=== PATIENT | female | born 1965 | race Caucasian/White ===

== ENCOUNTER 2020-03-04 10:07 | Inpatient (IN) ==
[2020-03-04 11:55] LABS: BASO# 0.02 X1000 (0.0-0.2); BASO% 0.2 % (0.0-0.8); EOS# 0.08 X1000 (0.0-0.7); EOS% 0.7 % (0.0-10.0); HEMOGLOBIN 14.8 g/dL (12.0-16.0); IMM GRAN# 0.04 X1000 (0.0-0.04); IMM GRAN% 0.4 % (0.0-0.5); LYMPH# 1.68 X1000 (1.2-3.4); LYMPH% 14.9 % (20.5-51.1); MCH 28.5 PG (27-31); MCHC 30.2 g/dL (33-37); MCV 94.2 FL (81-99); MONO# 0.75 X1000 (0.11-0.59); MONO% 6.6 % (1.7-9.3); MPV 9.1 FL (7.4-10.4); NEUT# 8.71 X1000 (1.4-6.5); NEUT% 77.2 % (42.2-75.2); PLT 321 X1000 (130-400); RDW 14.5 % (11.5-14.5); WBC 11.28 X1000 (4.8-10.8)
[2020-03-04] MEDS ORDERED: REGLAN IV ONE (11:55)
[2020-03-04] MEDS ORDERED: PEPCID IV ONE (11:55)
[2020-03-04] MEDS ORDERED: PROTONIX IV ONE (11:55)
[2020-03-04] MEDS ORDERED: G.I. COCKTAIL PO ONE (11:55)
[2020-03-04] MEDS ORDERED: SODIUM CHLORIDE 0.9% INJ ONE ×2 (11:55)
[2020-03-04 12:12] LABS: AGAP 9; ALBUMIN 4.2 g/dL (3.5-5.0); ALKALINE PHOSPHATASE 134 U/L (32-104); BUN 7 mg/dL (8-22); CHLORIDE 98 mmol/L (98-107); COSMO 277; CREATININE 0.5 mg/dL (0.5-0.9); ESTIMATED GFR > 60; GLUCOSE 96 mg/dL (70-104); GOT 14 U/L (10-30); GPT 14 U/L (10-36); SODIUM 140 mmol/L (136-145); TCO2 33 mmol/L (25-35); TOTAL PROTEIN 7.8 g/dL (6.3-8.3)
[2020-03-04 12:13] LABS: PHOSPHORUS 2.8 mg/dL (2.7-4.5)
[2020-03-04 12:29] LABS: FREE T4 1.15 ng/dL (0.93-1.70); TSH 0.45 uIUmL (0.27-4.20)
[2020-03-04 12:59] LABS: BLOOD TYPE ARTERIAL; SAMPLE BLOOD
[2020-03-04 13:00] LABS: BE 9.8 mmoll (-3.0-3.0); HCO3-(ACT) 32.3 mmoll (20.0-26.0); O2(CT) 18.6 mL/dL (15.0-23.0); PO2(98.6) 57 mmHg (60-100); SAO2 92.5 % (95.0-100.0); THB 14.9 g/dL (11.5-17.4); pH(98.6) 7.36 (7.35-7.45)
[2020-03-04 13:04] LABS: ALLEN TEST YES; MODALITY ROOM AIR; O2HB 89.1 % (95.0-99.0); PCO2(98.6) 68 mmHg (35-45)
--- NOTE | 2020-03-04 13:07 | Diag Imaging Result Doc PS360 ---
EXAM: CT ABD/PELVIS W/IV CONT ONLY INDICATION: abd pain TECHNIQUE: This exam was performed using automated exposure control, adjustment of mA or kV according to patient size, and/or use of iterative reconstruction technique. COMPARISON: None. FINDINGS: There is subsegmental atelectasis at the right lung base. The gallbladder, liver, spleen, pancreas, and adrenal glands are unremarkable. There are a few small renal cysts bilaterally. The kidneys are grossly unremarkable, otherwise. The urinary bladder appears normal. The reproductive tract is unremarkable as imaged. The appendix is normal. No colonic or small bowel wall thickening is appreciated. There is no evidence of bowel obstruction. There is a tiny hiatal hernia. The remainder of the GI tract is essentially unremarkable. There is a tiny umbilical hernia that contains only fat. No focal inflammatory changes, free abdominal gas, or free fluid is appreciated. There is no evidence of acute osseous abnormality. IMPRESSION: Incidental/nonacute findings detailed above. No definite acute pathology by CT. Electronically signed by Steve Vu 03/04/2020 1:04 PM
--- NOTE | 2020-03-04 13:09 | Diag Imaging Result Doc PS360 ---
EXAM: CHEST-2 VIEWS INDICATION: cp TECHNIQUE: 2 views COMPARISON: 03/16/2018 FINDINGS: There is mild subsegmental atelectasis at the posterior right lung base. There is stable mild linear scarring versus chronic atelectasis in the left midlung zone. There is no discrete pleural fluid collection or pneumothorax. The cardiomediastinal silhouette and central vasculature are grossly unremarkable. IMPRESSION: Mild subsegmental atelectasis. No definite acute chest pathology by plain radiograph, otherwise. Electronically signed by Steve Vu 03/04/2020 1:07 PM
--- NOTE | 2020-03-04 13:19 | EKG Report ---
Test Performed on : 03/04/2020 11:43:26 AM Test Reason : cp Blood Pressure : / mmHG Vent. Rate : 098 BPM Atrial Rate : 098 BPM P-R Int : 152 ms QRS Dur : 080 ms QT Int : 344 ms P-R-T Axes : 067 026 053 degrees QTc Int : 439 ms Normal sinus rhythm. Anterior infarct , age undetermined Abnormal ECG When compared with ECG of 08-JAN-2018 15:00, No significant change was found Unconfirmed Result
[2020-03-04 13:25] LABS: URINE SOURCE CLEAN CATCH
[2020-03-04 13:27] LABS: BILIRUBIN URINE NEGATIVE (NEGATIVE); BLOOD URINE NEGATIVE (NEGATIVE); COLOR YELLOW; GLUCOSE URINE NEGATIVE (NEGATIVE); KETONE URINE NEGATIVE (NEGATIVE); LEUKOCYTES URINE NEGATIVE (NEGATIVE); NITRITE URINE NEGATIVE (NEGATIVE); PH URINE 8.5; PROTEIN URINE TRACE mg/dL (NEGATIVE); SP GRAVITY URINE 1.046; TURBIDITY URINE CLEAR (CLEAR); UROBILINOGEN URINE NORMAL (NORMAL)
[2020-03-04 13:28] LABS: UR EPITHELIAL CELLS <10 /HPF (<10); URINE BACTERIA NEGATIVE /HPF; URINE RBC <10 /HPF (<10); URINE WBC <10 /HPF (<10)
[2020-03-04] MEDS ORDERED: NS 1,000 ML IV ONE (13:37)
[2020-03-04 13:45] LABS: UR AMPHETAMINES QUAL NONE DETECTED (NONE DETECT); UR BARBITUATES QUAL NONE DETECTED (NONE DETECT); UR BENZODIAZEPIN QUAL NONE DETECTED (NONE DETECT); UR CANNABINOIDS QUAL NONE DETECTED (NONE DETECT); UR COCAINE QUAL NONE DETECTED (NONE DETECT); UR METHADONE QUAL NONE DETECTED (NONE DETECT); UR METHAMPHETAMINE QUAL NONE DETECTED (NONE DETECT); UR OPIATES QUAL NONE DETECTED (NONE DETECT); UR OXYCODONE QUAL NONE DETECTED (NONE DETECT); UR PCP QUAL NONE DETECTED (NONE DETECT); UR PROPOXYPHENE QUAL NONE DETECTED (NONE DETECT); UR TCA QUAL NONE DETECTED (NONE DETECT)
--- NOTE | 2020-03-04 13:49 | PROVIDER DOCUMENTATION ---
This chart was entered by Mariela Joiner Scribe, acting as scribe for Zack Basilio CRNP. HPI-General Adult - General Source: patient - History of Present Illness -Gen Adult Nature of Presenting Problems: pt is a 54 yr old female presenting with multiple complaints. pt reports (02/29/20) was sent home from work due to cough, low oxygen sats and abdominal pain. pt reports she has had low oxygen for "awhile" and told it was "normal" for her, pt reports significant swelling of BLE x 6months and has to sleep upright. pt admits epigastric pain, reports when she swallows it feels like something is stuck and that she has a knot in her chest. pt admits shor tness of breath when lying down or with exertion. pt reports since she has been off work the edema to legs has improved but all other symptoms remain Location of Pain/Injury: reports: chest, abdomen Pain Radiation: reports: no radiation Quality of Pain: reports: pressure Severity: reports: moderate Onset/Duration: reports: gradual Timing: reports: getting worse Context/Activities at Onset: reports: light activity Modifying Factors: improves with: breathing (induces pain), eating (induces pain), lying down (worsens shortness of breath) Associated Symptoms: reports: chest pain, cough, headaches, nausea, shortness of breath, pain with inspiration. denies: dizziness, EENT symptoms, fever/chills, loss of appetite, sinus congestion/drainage Similar Symptoms Previously?: No Recently seen or treated by another doctor?: No <Zack Basilio - Last Filed: 03/04/20 13:54> <Jeff Gandhi - Last Filed: 03/04/20 14:53> - General Chief Complaint: Abdominal Pain Stated Complaint: GI PAIN Time Seen by Provider: 03/04/20 10:09 Allergies/Adverse Reactions: Patient Allergies Allergy/AdvReac Type Severity Reaction Status Date / Time No Known Allergies Allergy Verified 01/06/18 10:05 Home Medications: Home Medication List Medication Instructions Recorded Confirmed Last Taken Type Albuterol [Albuterol Neb] 2.5 mg INH RTQ6H #120 neb 01/08/18 Unknown Rx Ipratropium H[place]orne Neb [Atrovent 0.5 mg INH RTQ6H #120 neb 01/08/18 Unknown Rx Neb] Modafinil [Provigil] 200 mg PO QAM #30 tablet 01/08/18 Unknown Rx Nebulizer Accessories [Nebulizer] 1 each DIRECTED #1 kit 01/08/18 Unknown Rx Review of Systems - Adult - REVIEW OF SYSTEMS - ADULT Constitutional: denies: chills, fever Eyes: denies: blurred vision, double vision Ears, Nose, Mouth & Throat: denies: ear pain, sinus problem, throat pain Cardiovascular: reports: chest pain, edema, orthopnea. denies: palpitations, syncope Respiratory: reports: cough, dyspnea on exertion, pleurisy, shortness of breath Gastrointestinal: reports: abdominal pain, nausea. denies: diarrhea, vomiting Genitourinary: denies: dysuria, frequency, flank pain Musculoskeletal: denies: back pain, joint pain, neck pain Integumentary: reports: no symptoms reported Neurological: reports: headache/migraines. denies: dizziness/vertigo, numbness, syncope Psychiatric: reports: no symptoms reported Endocrine: reports: no symptoms reported Hematologic/Lymphatic: reports: no symptoms reported Allergic/Immunologic: reports: no symptoms reported All Other Systems: Reviewed and Negative <Zack Basilio - Last Filed: 03/04/20 13:54> Past History - Adult - PAST MEDICAL HISTORY-ADULT Review of Records: reports: Old Records Reviewed, Nursing Assessment Review, Medications Reviewed, Social history reviewed & non-contributory. Major Childhood Illnesses: reports: denies history Cardiovascular: reports: denies history Respiratory: reports: denies history Gastrointestinal: reports: denies history Obstetrical/Gynecological: reports: denies history Genitourinary: reports: denies history Musculoskeletal: reports: denies history Neurological: reports: denies history Psychiatric: reports: anxiety Endocrine/Immune: reports: denies history Other Conditions: reports: denies history - PRIOR SURGERIES/PROCEDURES Surgical/Procedure History: reports: orthopedic (extremity) - IMMUNIZATION STATUS Childhood Immunizations: See Nurse Assessment Flu Vaccine: See Nurse Assessment - FAMILY HISTORY Family History: reviewed, not pertinent - SOCIAL HISTORY Smoking: quit greater than 1 year (7yrs) Living Situation: family <Zack Basilio - Last Filed: 03/04/20 13:54> Physical Exam-General - PHYSICAL EXAM-ADULT Initial Vital Signs Reviewed: Yes - CONSTITUTIONAL General Appearance: alert, no apparent distress, obese - EYES Eyes: PERRL/EOMI - HEAD, EARS, NOSE, MOUTH & THROAT HENMT: normocephalic/atraumatic, moist mucous membranes, normal ENT inspection - NECK Neck: non-tender, full range of motion, supple, normal inspection - RESPIRATORY Respiratory: lungs clear, normal breath sounds, other (spo2 82% on room air, 94% on 4l) - CARDIOVASCULAR Cardiovascular: normal peripheral pulses, regular rate, rhythm, tachycardia - GASTROINTESTINAL (ABDOMEN) Abdominal Exam: normal bowel sounds, non tender, soft - LYMPHATIC Lymphatic: no adenopathy - MUSCULOSKELETAL Back Exam: normal inspection, no CVA tenderness, no vertebral tenderness Extremity: normal range of motion, non-tender, normal gait, pedal edema (BLE edema) - SKIN Integumentary: normal turgor, warm/dry, cyanosis (to fingers-resolved when oxygen applied) - NEUROLOGIC Neurologic: grossly normal, no motor/sensory deficits - PSYCHIATRIC Psych/Mental Status: normal mood/affect, normal thought content, normal thought process, oriented x 3 <Zack Basilio - Last Filed: 03/04/20 13:54> Progress - PLAN OF CARE/RESULTS Progress/Plan/Lab Results: Vital Signs - 8 hr 03/04/20 10:12 Temperature 98.1 F Pulse Rate 96 H Respiratory Rate 16 Blood Pressure 152/117 O2 Sat by Pulse Oximetry 86 L Orders Category Date Time Status NEWS Score 2-4:Order NEWS Lactate Series NOW Care 03/04/20 10:15 Active Nursing- Obtain EKG ONCE Care 03/04/20 11:25 Active CHEST-2 VIEWS [RAD] Stat Exams 03/04/20 11:[address] ABD/PELVIS W/IV CONT ONLY [CT] Stat Exams 03/04/20 11:25 Ordered CBC WITH ELECTRONIC DIFF [HEME] Stat Lab 03/04/20 11:25 Uncollected CK PROFILE [SP CHEM] Stat Lab 03/04/20 11:25 Ordered CK TOTAL [CHEM] Stat Lab 03/04/20 11:25 Ordered COMPREHENSIVE METABOLIC PANEL [CHEM] Stat Lab 03/04/20 11:25 Uncollected FREE T4 Stat Lab 03/04/20 11:25 Uncollected MAGNESIUM [CHEM] Stat Lab 03/04/20 11:25 Uncollected PHOSPHORUS [CHEM] Stat Lab 03/04/20 11:25 Ordered PRO B-NATRIURETIC PEPTIDE Stat Lab 03/04/20 11:25 Ordered TROPONIN T HIGH SENSITIVITY Stat Lab 03/04/20 11:25 Uncollected TSH Stat Lab 03/04/20 11:25 Uncollected UA NIMS W/REFLEX CULT [URINALYSIS] Stat Lab 03/04/20 11:25 Uncollected URINE DRUG SCREEN PL Stat Lab 03/04/20 11:25 Uncollected EKG [EKG] Stat Ther 03/04/20 11:25 Ordered Result Diagrams: 03/04/20 11:44 03/04/20 11:44 - EKG 1 Time of EKG reading by physician:: 11:50 EKG Read and Signed by:: Jeff Gandhi EKG Interpretation (*Must complete 3 of following elements*): Abnormal (anterior infarct-age undetermined) Rate: 98 Rhythm: nsr [place]: normal QRS: normal DE Interval: normal - XRAY 1 XRAY Study: Chest Impression: Abnormal ( Patient: ANN MARIE ACHARYA Date: 03/04[birth year]MR#: [id number] : 1965[id number] Age/Sex: 54/FRoom/Bed: Loc: P.ED Ordering Physician: Zack Basilio Family Physician: Benson Sykes MD Reason for Procedure: cp Signed EXAM: CHEST-2 VIEWS INDICATION: cp TECHNIQUE: 2 views COMPARISON: 03/16/2018 FINDINGS: There is mild subsegmental atelectasis at the posterior right lung base. There is stable mild linear scarring versus chronic atelectasis in the left midlung zone. There is no discrete pleural fluid collection or pneumothorax. The cardiomediastinal silhouette and central vasculature are grossly unremarkable. IMPRESSION: Mild subsegmental atelectasis. No definite acute chest pathology by plain radiograph, otherwise. Electronically signed by Steve Vu 03/04/2020 1:07 PM 03/04/20 1307 Interpreting Physician: Steve Vu MD Dictated Date/Time: 03/04/20 1304 cc: Zack Basilio; Benson Sykes MD) Comparison with other Films: no changes (03/16/18) - CT/MRI 1 CT Study: Abdomen, Pelvis Impression: Abnormal (Department of Imaging Patient: ANN MARIE ACHARYADM Date: 03/04/20MR#: [id number] : 1965ADM Status: [facility]#: [id number] Age/Sex: 54/FRoom/Bed: Loc: P.ED Ordering Physician: Zack Basilio Family Physician: Benson Sykes MD Reason for Procedure: abd pain ____ Signed EXAM: CT ABD/PELVIS W/IV CONT ONLY INDICATION: abd pain TECHNIQUE: This exam was performed using automated exposure control, adjustment of mA or kV according to patient size, and/or use of iterative reconstruction technique. COMPARISON: None. FINDINGS: There is subsegmental atelectasis at the right lung base. The gallbladder, liver, spleen, pancreas, and adrenal glands are unremarkable. There are a few small renal cysts bilaterally. The kidneys are grossly unremarkable, otherwise. The urinary bladder appears normal. The reproductive tract is unremarkable as imaged. The appendix is normal. No colonic or small bowel wall thickening is appreciated. There is no evidence of bowel obstruction. There is a tiny hiatal hernia. The remainder of the GI tract is essentially unremarkable. There is a tiny umbilical hernia that contains only fat. No focal inflammatory changes, free abdominal gas, or free fluid is appreciated. There is no evidence of acute osseous abnorma lity. IMPRESSION: Incidental/nonacute findings detailed above. No definite acute pathology by CT. Electronically signed by Steve Vu 03/04/2020 1:04 PM 03/04/20 1304 Interpreting Physician: Steve Vu MD Dictated Date/Time: 03/04/20 1253 cc: Zack Basilio; Benson Sykes MD) Comparison with other Films: no prior study - CONSULTS/PCP/HOSPITALIST Notification #1 *Consult/PCP/Hospitalist*: Dr Sykes Time Discussed: 13:35 Reason/Comments: Hypoxia, hypercapnia, leukocytosis, pickwickian syndrome Consult Disposition: Admit (admit at [facility] for resp consult) #2 Consult: Dr Nash Time Discussed: 13:47 Reason/Comments: hypoxia, hypercapnia, leukocytosis, pickwickian syndrome Consult Disposition: Admit <Zack Basilio - Last Filed: 03/04/20 13:54> - PLAN OF CARE/RESULTS Progress/Plan/Lab Results: Vital Signs - 8 hr 03/04/20 10:12 03/04/20 11:59 03/04/20 12:53 Temperature 98.1 F Pulse Rate 96 H 85 89 Respiratory Rate 16 21 28 H Blood Pressure 152/117 136/91 119/81 O2 Sat by Pulse Oximetry 86 L 94 L 93 L Laboratory Results - last 24 hr 03/04/20 03/04/20 03/04/20 11:44 11:44 11:44 WBC RBC Hgb Hct MCV MCH MCHC RDW Std Deviation Plt Count MPV Immature Gran % (Auto) Neut % (Auto) Lymph % (Auto) [place] % (Auto) Eos % (Auto) Baso % (Auto) Immature Gran # (Auto) Neut # (Auto) Lymph # (Auto) [place] # (Auto) Eos # (Auto) Baso # (Auto) Specimen Type Sample Site pH pCO2 pO2 HCO3 Base Excess Oxyhemoglobin ABG O2 Sat (Calculated) ABG O2 Saturation ABG Carboxyhemoglobin ABG Methemoglobin Steven Test A-a O2 Difference Total Hemoglobin Lactate Blood Gas Modality FiO2 % Sodium Potassium Chloride Carbon Dioxide Anion Gap BUN Creatinine Estimated GFR/1.73 m2 BUN/Creatinine Ratio Glucose Calculated Osmolality Calcium Phosphorus 2.8 Magnesium Total Bilirubin AST ALT Alkaline Phosphatase Creatine Kinase 27 28 Troponin T High Sens Qml-Y-Oydhtiaxjim Pept 39 Total Protein Albumin Globulin Albumin/Globulin Ratio TSH Free T4 Urine Source Urine Color Urine Turbidity Urine pH Ur Specific [employer] Urine Protein Ur Glucose (Stick) Ur Ketones (Stick) Urine Blood Urine Nitrite Urine Bilirubin Urobilinogen Dipstick Urine Leukocytes Urine WBC (Auto) Urine RBC (Auto) U Epithel Cells (Auto) Urine Bacteria (Auto) Urine Opiates Screen Ur Oxycodone Screen Urine Methadone Screen U Propoxyphene Qual Ur Barbituates Screen Ur Tricyclics Screen Ur Phencyclidine Scrn Ur Amphetamines Screen U Methamphetamines Scrn U Benzodiazepines Scrn Urine Cocaine Screen U Cannabinoids Screen 03/04/20 03/04/20 03/04/20 11:44 11:44 11:44 WBC RBC Hgb Hct MCV MCH MCHC RDW Std Deviation Plt Count MPV Immature Gran % (Auto) Neut % (Auto) Lymph % (Auto) [place] % (Auto) Eos % (Auto) Baso % (Auto) Immature Gran # (Auto) Neut # (Auto) Lymph # (Auto) [place] # (Auto) Eos # (Auto) Baso # (Auto) Specimen Type Sample Site pH pCO2 pO2 HCO3 Base Excess Oxyhemoglobin ABG O2 Sat (Calculated) ABG O2 Saturation ABG Carboxyhemoglobin ABG Methemoglobin Steven Test A-a O2 Difference Total Hemoglobin Lactate Blood Gas Modality FiO2 % Sodium 140 Potassium 5.0 Chloride 98 Carbon Dioxide 33 Anion Gap 9 BUN 7 L Creatinine 0.5 Estimated GFR/1.73 m2 > 60 BUN/Creatinine Ratio 14 Glucose 96 Calculated Osmolality 277 Calcium 9.0 Phosphorus Magnesium 2.0 Total Bilirubin 0.40 AST 14 ALT 14 Alkaline Phosphatase 134 H Creatine Kinase Troponin T High Sens 6 Lzg-S-Xebmurzhyth Pept Total Protein 7.8 Albumin 4.2 Globulin 4.0 Albumin/Globulin Ratio 1.0 TSH 0.45 Free T4 1.15 Urine Source Urine Color Urine Turbidity Urine pH Ur Specific [employer] Urine Protein Ur Glucose (Stick) Ur Ketones (Stick) Urine Blood Urine Nitrite Urine Bilirubin Urobilinogen Dipstick Urine Leukocytes Urine WBC (Auto) Urine RBC (Auto) U Epithel Cells (Auto) Urine Bacteria (Auto) Urine Opiates Screen Ur Oxycodone Screen Urine Methadone Screen U Propoxyphene Qual Ur Barbituates Screen Ur Tricyclics Screen Ur Phencyclidine Scrn Ur Amphetamines Screen U Methamphetamines Scrn U Benzodiazepines Scrn Urine Cocaine Screen U Cannabinoids Screen 03/04/20 03/04/20 03/04/20 11:44 12:43 13:15 WBC 11.28 H RBC 5.20 Hgb 14.8 Hct 49.0 H MCV 94.2 MCH 28.5 MCHC 30.2 L RDW Std Deviation 14.5 Plt Count 321 MPV 9.1 Immature Gran % (Auto) 0.4 Neut % (Auto) 77.2 H Lymph % (Auto) 14.9 L [place] % (Auto) 6.6 Eos % (Auto) 0.7 Baso % (Auto) 0.2 Immature Gran # (Auto) 0.04 Neut # (Auto) 8.71 H Lymph # (Auto) 1.68 [place] # (Auto) 0.75 H Eos # (Auto) 0.08 Baso # (Auto) 0.02 Specimen Type ARTERIAL Sample Site R RADIAL pH 7.36 pCO2 68 H* pO2 57 L HCO3 32.3 H Base Excess 9.8 H Oxyhemoglobin 89.1 L* ABG O2 Sat (Calculated) 18.6 ABG O2 Saturation 92.5 L ABG Carboxyhemoglobin 2.70 H ABG Methemoglobin 1.0 Steven Test YES A-a O2 Difference 8.0 Total Hemoglobin 14.9 Lactate 0.70 Blood Gas Modality ROOM AIR FiO2 % 21.0 Sodium Potassium Chloride Carbon Dioxide Anion Gap BUN Creatinine Estimated GFR/1.73 m2 BUN/Creatinine Ratio Glucose Calculated Osmolality Calcium Phosphorus Magnesium Total Bilirubin AST ALT Alkaline Phosphatase Creatine Kinase Troponin T High Sens Iri-S-Qaxvunkztvk Pept Total Protein Albumin Globulin Albumin/Globulin Ratio TSH Free T4 Urine Source Urine Color Urine Turbidity Urine pH Ur Specific [employer] Urine Protein Ur Glucose (Stick) Ur Ketones (Stick) Urine Blood Urine Nitrite Urine Bilirubin Urobilinogen Dipstick Urine Leukocytes Urine WBC (Auto) Urine RBC (Auto) U Epithel Cells (Auto) Urine Bacteria (Auto) Urine Opiates Screen NONE DETECTED Ur Oxycodone Screen NONE DETECTED Urine Methadone Screen NONE DETECTED U Propoxyphene Qual NONE DETECTED Ur Barbituates Screen NONE DETECTED Ur Tricyclics Screen NONE DETECTED Ur Phencyclidine Scrn NONE DETECTED Ur Amphetamines Screen NONE DETECTED U Methamphetamines Scrn NONE DETECTED U Benzodiazepines Scrn NONE DETECTED Urine Cocaine Screen NONE DETECTED U Cannabinoids Screen NONE DETECTED 03/04/20 13:15 WBC RBC Hgb Hct MCV MCH MCHC RDW Std Deviation Plt Count MPV Immature Gran % (Auto) Neut % (Auto) Lymph % (Auto) [place] % (Auto) Eos % (Auto) Baso % (Auto) Immature Gran # (Auto) Neut # (Auto) Lymph # (Auto) [place] # (Auto) Eos # (Auto) Baso # (Auto) Specimen Type Sample Site pH pCO2 pO2 HCO3 Base Excess Oxyhemoglobin ABG O2 Sat (Calculated) ABG O2 Saturation ABG Carboxyhemoglobin ABG Methemoglobin Steven Test A-a O2 Difference Total Hemoglobin Lactate Blood Gas Modality FiO2 % Sodium Potassium Chloride Carbon Dioxide Anion Gap BUN Creatinine Estimated GFR/1.73 m2 BUN/Creatinine Ratio Glucose Calculated Osmolality Calcium Phosphorus Magnesium Total Bilirubin AST ALT Alkaline Phosphatase Creatine Kinase Troponin T High Sens Qsy-Y-Uoifolctfva Pept Total Protein Albumin Globulin Albumin/Globulin Ratio TSH Free T4 Urine Source CLEAN CATCH Urine Color YELLOW Urine Turbidity CLEAR Urine pH 8.5 Ur Specific [employer] 1.046 Urine Protein TRACE A Ur Glucose (Stick) NEGATIVE Ur Ketones (Stick) NEGATIVE Urine Blood NEGATIVE Urine Nitrite NEGATIVE Urine Bilirubin NEGATIVE Urobilinogen Dipstick NORMAL Urine Leukocytes NEGATIVE Urine WBC (Auto) <10 Urine RBC (Auto) <10 U Epithel Cells (Auto) <10 Urine Bacteria (Auto) NEGATIVE Urine Opiates Screen Ur Oxycodone Screen Urine Methadone Screen U Propoxyphene Qual Ur Barbituates Screen Ur Tricyclics Screen Ur Phencyclidine Scrn Ur Amphetamines Screen U Methamphetamines Scrn U Benzodiazepines Scrn Urine Cocaine Screen U Cannabinoids Screen Orders Category Date Time Status Nursing- Obtain EKG ONCE Care 03/04/20 11:25 Active Oxygen Therapy- ED Nursing DIRECTED Care 03/04/20 12:00 Completed CHEST-2 VIEWS [RAD] Stat Exams 03/04/20 11:[address] ABD/PELVIS W/IV CONT ONLY [CT] Stat Exams 03/04/20 11:[address] THORAX W/CONTRAST [CT] Routine Exams 03/05/20 14:02 Ordered ABG [RESP] Routine Lab 03/04/20 12:43 Completed CBC WITH ELECTRONIC DIFF [HEME] Stat Lab 03/04/20 11:44 Completed CK PROFILE [SP CHEM] Stat Lab 03/04/20 11:44 Completed CK TOTAL [CHEM] Stat Lab 03/04/20 11:44 Completed COMPREHENSIVE METABOLIC PANEL [CHEM] Stat Lab 03/04/20 11:44 Completed FREE T4 Stat Lab 03/04/20 11:44 Completed MAGNESIUM [CHEM] Stat Lab 03/04/20 11:44 Completed MISCELLANEOUS TEST-LAB [RF] Stat Lab 03/04/20 13:33 Uncollected PHOSPHORUS [CHEM] Stat Lab 03/04/20 11:44 Completed PRO B-NATRIURETIC PEPTIDE Stat Lab 03/04/20 11:44 Completed TROPONIN T HIGH SENSITIVITY Stat Lab 03/04/20 11:44 Completed TSH Stat Lab 03/04/20 11:44 Completed UA NIMS W/REFLEX CULT [URINALYSIS] Stat Lab 03/04/20 13:[address]INE DRUG SCREEN PL Stat Lab 03/04/20 13:15 Completed 0.9% Sodium Chloride Inj [Ns] 1,000 ml Med 03/04/20 13:37 Active IV 100 mls/hr Famotidine [Pepcid] Med 03/04/20 11:55 Discontinued 20 mg IV NOW ONE Lido/Bryant Alk/Al&mg Hydrox [G.i. Cocktail] Med 03/04/20 11:55 Discontinued 30 ml PO NOW ONE Metoclopramide [Reglan] Med 03/04/20 11:55 Discontinued 10 mg IV NOW ONE Pantoprazole [Protonix] Med 03/04/20 11:55 Discontinued 40 mg IV NOW ONE Sodium Chloride 0.9% Med 03/04/20 11:55 Discontinued 10 ml INJ NOW ONE Sodium Chloride 0.9% Med 03/04/20 11:55 Discontinued 5 - 10 ml INJ NOW ONE EKG [EKG] Stat Ther 03/04/20 11:25 Draft Echo Spec/Color Doppler Routine Ther 03/04/20 14:02 Ordered Result Diagrams: 03/04/20 11:44 03/04/20 11:44 - REASSESSMENT Reassessment #1 Status: unchanged (ALSO EXAMINED PT, RECOMMEND ADMISSION-RWS) <Jeff Gandhi - Last Filed: 03/04/20 14:53> Departure - Departure Date of Disposition Decision: 03/04/20 Time of Disposition Decision: 13:36 Certified Medical Emergency: Emergent - Critical Care Note This patient required my direct & personal management of CC.: No <Zack Basilio - Last Filed: 03/04/20 13:54> <Jeff Gandhi - Last Filed: 03/04/20 14:53> - Departure DIAGNOSIS: Hypoxia, Hypercapnia, Pickwickian syndrome Leukocytosis Qualifiers: Leukocytosis type: unspecified Qualified Code(s): D72.829 - Elevated white blood cell count, unspecified Disposition: ADMITTED INPATIENT 09 Condition: Critical Referrals and Follow-Ups: Benson Sykes MD [Primary Care Provider] - Attestation - Physician/ ANABELLE Attestation Patient care was provided by Advanced Practice Provider:: Yes Advanced Practice Provider:: Zack Basilio Advanced Practice Provider documentation review:: The Mid-level provider documentation, treatment plan and medical decision making was reviewed by the physician who agrees with all treatment and medical decision making by the MLP. The physician spent face to face time with patient:: Yes Advanced Practice Provider documentation review:: Supervising physician onsite and consulted in the evaluation and care of this patient. The physician did have a face to face encounter with the patient. <Zack Basilio - Last Filed: 03/04/20 13:54> - Physician/ ANABELLE Attestation The physician spent face to face time with patient:: Yes Advanced Practice Provider documentation review:: Supervising physician onsite and consulted in the evaluation and care of this patient. The physician did have a face to face encounter with the patient. <Jeff Gandhi - Last Filed: 03/04/20 14:53> This chart was documented by the indicated scribe, (Mariela Joiner Scribe) and accurately reflects the services I performed and decisions made by , Zack Basilio CRNP, as attested by the provider's signature.
[2020-03-04] MEDS ORDERED: ZOFRAN IV PRN (15:17)
[2020-03-04] MEDS ORDERED: TYLENOL PO PRN (15:17)
[2020-03-04] MEDS ORDERED: VENTOLIN HFA INH PRN (15:17)
[2020-03-04 16:04] LABS: INFLUENZA A NEGATIVE (NEGATIVE); INFLUENZA B NEGATIVE (NEGATIVE)
[2020-03-04] MEDS: LOVENOX SUBQ SCH (16:47)
--- NOTE | 2020-03-04 19:17 | HISTORY AND PHYSICAL ---
PRIMARY CARE PHYSICIAN: Dr. Benson Sykes. CHIEF COMPLAINT: Epigastric pain and dysphagia after eating as well as long-standing shortness of breath and lower extremity edema. HISTORY OF PRESENT ILLNESS: This is a 54-year-old female with a history of Pickwickian syndrome, obstructive sleep apnea with noncompliance with CPAP, morbid obesity, anxiety who presents to the emergency room complaining of epigastric pain and dysphagia. She states that for about the last 4 to 6 months that she feels like she has got a knot right around her xiphoid area after she eats any food. She feels like it gets stuck. She becomes short of breath after this, gets nauseated, but she denies any vomiting. She states that she just walks around and complains a lot and sooner or later the pain gets better. Over the last 2 to 3 months it has gotten to the point that she dreads eating due to this pain, although she has not decreased oral intake. She says that she has not told Dr. Sykes about this. She also reports low oxygen saturations since the early months of 2017. She states that she underwent a sleep study. This was in February and March 2018. She was diagnosed with obstructive sleep apnea, although, she has does not use a CPAP nor home O2. She states that over these last 2 years that during the night and activity, she maintains oxygen saturations that are in the mid 80s to the low 90s and she states that she has been told this was just her normal. She works and does her activities of daily living. She just slows down when she gets short of breath. She did state that Wednesday she started developing a cough and that , she was sent home from work because she had a cough and low-grade fever. She denies a cough today. She also reports bilateral lower extremity edema that has been present for the last 6 months that she has to sleep upright in a chair, mostly because she develops epigastric pain, epigastric burning and shortness of breath. She denied any chest pain any palpitations, a productive cough, any vomiting, constipation, or diarrhea. PAST MEDICAL HISTORY: 1. Morbid obesity. 2. Anxiety and depression. 3. Pickwickian syndrome. 4. Obstructive sleep apnea with noncompliance. PAST SURGICAL HISTORY: Orthopedic surgery. SOCIAL HISTORY: She denies any alcohol or illicit drug use. She smoked in the past, but she quit 7 years ago. ALLERGIES: No known drug allergies. HOME MEDICATIONS: A list will be obtained by the nursing staff and once verified, we will review and restart as appropriate. REVIEW OF SYSTEMS: Discussed with patient with pertinent positives stated in the HPI. She denied any syncope, any dizziness, any palpitations, any chest pain, any vomiting, diarrhea, constipation, black or bloody vomitus or stools any hematuria, dysuria, frequency or urgency. PHYSICAL EXAMINATION: GENERAL: This is a 54-year-old female who is sitting up in the chair at the bedside, playing a game on her phone in no distress. VITAL SIGNS: Blood pressure is 136/86 with a heart rate of 88, respirations are 20, temperature is 98.1 degrees with O2 saturations that are 96 to 97 percent on 2 L nasal cannula. EYES: Pupils equal, round, react to light. EOMs are intact sclerae anicteric. HEENT: Head is normocephalic, atraumatic. Mucous membranes are moist. NECK: Supple with trachea midline. No JVD. CARDIOVASCULAR: Regular rate and rhythm. S1 and S2 are appreciated. No murmur. PULMONARY: Breath sounds are clear. Chest rises and falls symmetric with respiration. Chest wall is nontender to palpation. GASTROINTESTINAL: Abdomen is soft, nondistended. She has some tenderness at just below the xiphoid with bowel sounds in all 4 quadrants. GENITOURINARY: No CVA tenderness. No bladder tenderness. NEUROLOGIC: She is alert and oriented x3. EXTREMITIES: She has bilateral lower extremity edema from just below the knees down. She states calves are nontender to palpation. Peripheral pulses are palpable x4 extremities. LABS: WBC is 11.2 with hemoglobin 14.8, hematocrit 49, and platelets 321,000. Sodium 140, potassium 1, BUN 7, creatinine 0.5, glucose of 96. Urinalysis is essentially negative. Urine drug screen reveals none detected. Influenza A and B are negative. ABGs pH is 7.36 with a pCO2 of 68, PO2 of 57, and bicarb of 32.3. This is on room air. Oxyhemoglobin is 89.1. Chest x-ray revealed mild subsegmental atelectasis with no definite acute chest pathology. CT of the abdomen and pelvis revealed subsegmental atelectasis at the right lung base. A few small renal cysts bilateral. The kidneys are grossly unremarkable otherwise. There is a tiny hiatal hernia. The remainder of the GI tract is essentially unremarkable. There is a tiny umbilical hernia that contains only fat. No focal inflammatory changes, free abdominal gas or free fluid is appreciated. EKG reveals sinus rhythm at a rate of 98. ASSESSMENT AND PLAN: 1. Chronic hypoxemic hypercapnic respiratory failure. 2. Pickwickian syndrome. 3. Obstructive sleep apnea in a patient who is noncompliant with wearing oxygen and CPAP. 4. Epigastric pain and nausea. 5. Dysphagia. 6. Leukocytosis. 7. Right lower lobe atelectasis. PLAN: 1. Transfer to [facility]. 2. Telemetry. 3. Albuterol inhaler q.6 hours p.r.n.. Once Coronavirus Disease 2019 is negative we can give DuoNeb as needed. 4. Antibiotic coverage of azithromycin and Rocephin. 5. Incentive spirometer every 4 hours when awake. 6. The patient has been ordered to be up in the chair with meals and p.r.n.. We will ordered to keep the head of the bed elevated 30 degrees at all times. 7. Protonix and Pepcid. 8. Check CBC and CMP in the morning. 9. Regular diet as tolerated. 10. The patient was tested for Coronavirus Disease 2019 in the emergency room. She will be placed on the proper appropriate isolation until testing returns. 11. Get a bilateral lower extremity Doppler Plan was discussed with Dr. Nash. Further treatments pending hospital course. Dictated by KENRICK Escobedo for Kolton Dial MD cc: KENRICK Escobedo MD
[2020-03-04] MEDS: PEPCID PO SCH (20:42)
[2020-03-04] MEDS: ROCEPHIN 1 GM in NS 50 ML IV SCH (20:42)
[2020-03-04] MEDS: ZITHROMAX PO SCH (20:43)
[2020-03-05] MEDS: PRILOSEC PO SCH ×2 (05:54→06:39)
[2020-03-05 06:23] LABS: BASO# 0.03 X1000 (0.0-0.2); BASO% 0.3 % (0.0-0.8); EOS# 0.05 X1000 (0.0-0.7); EOS% 0.5 % (0.0-10.0); HEMATOCRIT 48.5 % (37.0-47.0); HEMOGLOBIN 14.6 g/dL (12.0-16.0); IMM GRAN# 0.02 X1000 (0.0-0.04); IMM GRAN% 0.2 % (0.0-0.5); LYMPH# 1.12 X1000 (1.2-3.4); LYMPH% 12.2 % (20.5-51.1); MCHC 30.1 g/dL (33-37); MCV 93.1 FL (81-99); MONO# 0.63 X1000 (0.11-0.59); MONO% 6.9 % (1.7-9.3); MPV 9.1 FL (7.4-10.4); NEUT# 7.32 X1000 (1.4-6.5); NEUT% 79.9 % (42.2-75.2); PLT 297 X1000 (130-400); RBC 5.21 XMIL (4.2-5.4); RDW 14.7 % (11.5-14.5); WBC 9.17 X1000 (4.8-10.8)
[2020-03-05 06:49] LABS: AGAP 11; ALB/GLOB RATIO 0.9; ALBUMIN 3.5 g/dL (3.5-5.0); ALKALINE PHOSPHATASE 127 U/L (32-104); BUN 9 mg/dL (8-22); CALCIUM 8.4 mg/dL (8.8-10.2); CHLORIDE 100 mmol/L (98-107); COSMO 284; CREATININE 0.6 mg/dL (0.5-0.9); ESTIMATED GFR > 60; GLUCOSE 98 mg/dL (70-104); GOT 13 U/L (10-30); GPT 12 U/L (10-36); POTASSIUM 4.8 mmol/L (3.5-5.1); SODIUM 143 mmol/L (136-145); TCO2 32 mmol/L (25-35); TOTAL BILIRUBIN 0.38 mg/dL (0.20-1.00); TOTAL PROTEIN 7.2 g/dL (6.3-8.3)
[2020-03-05] MEDS: ZITHROMAX PO SCH (08:42)
[2020-03-05] MEDS: PEPCID PO SCH ×2 (08:42→21:33)
--- NOTE | 2020-03-05 11:03 | Diag Imaging Result Doc PS360 ---
EXAM: CT THORAX W/CONTRAST 03/05/2020 HISTORY: progressive sob TECHNIQUE: This exam was performed using automated exposure control, adjustment of mA or kV according to patient size, and/or use of iterative reconstruction technique. COMMENT: The current study is compared with the previous examination of 01/07/2018. The aorta is normal in caliber. There is no evidence of dissection. There are no apparent filling defects in the pulmonary arteries. There are no abnormal fluid collections. There is a small hiatal hernia. There are atelectatic changes present in the posterior costophrenic sulcus on the right and platelike opacities elsewhere in both lower lobes and lingula. There is also some platelike opacity posteriorly in the left upper lobe. Some of these abnormalities were apparently present on the previous study and may be related to fibrosis. There is no evidence of dense consolidation or groundglass opacity. There is no evidence of acute disease in the visualized portion of the abdomen. The regional skeleton appears to be intact. IMPRESSION: Subsegmental atelectasis plus minus fibrosis. Hiatal hernia. Electronically signed by Jerry Lakhani 03/05/2020 11:00 AM
--- NOTE | 2020-03-05 14:46 | PROGRESS NOTE ---
DATE: 03/05/2020 SUBJECTIVE: This morning, Ms. Alvarado refers to be doing well. Denies any new complaints. Ms. Alvarado is a 54-year-old, female with a history of obstructive sleep apnea, overlap with obesity hypoventilation syndrome. She is on chronic oxygen and CPAP therapy at home, but has not used any of her treatment for a couple of months now because of some financial restraints. She came to the emergency room because she was having difficulty breathing. She was found to be very hypoxemic initially with saturation of 86. ABG, which was done at [facility], revealed a pCO2 of 68 and a PO2 of 57, with oxyhemoglobin of 89.1. She was transferred from the [facility] to [facility] for higher level of care. OBJECTIVE: Vital Signs: Blood pressure 127/54, pulse of 88, respirations 24, temperature is 98.3 degrees. General: Ms. Alvarado is a 54-year-old, female. She was sitting up in a chair. No distress. HEENT: Mucosa is pink and moist. Anicteric. Acyanotic. She is remarkably obese with a BMI of 49.9. Chest: Clear to auscultation. No crepitations. No rhonchi. Cardiovascular: Regular rate and rhythm. GI: Abdomen was soft, distended, but nontender. Bowel sounds present. Extremities: No pedal edema. 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 There is no focal deficit. IMAGING STUDIES: A CT scan of the abdomen and pelvis did show a tiny hiatal hernia and a tiny umbilical hernia, otherwise no abnormality. A CT scan of the chest shows subsegmental atelectasis, plus/minus fibrosis and a hiatal hernia. LABORATORY DATA: Laboratory data does show erythrocytosis and mild alkalosis. The patient's COVID testing is back negative. ASSESSMENT: 1. Acute on chronic hypoxemic and hypercarbic respiratory failure. 2. History of obstructive sleep apnea. Patient noncompliant with continuous positive airway pressure use. 3. Obesity hypoventilation syndrome. 4. Epigastric discomfort, most likely due to hiatal hernia. 5. Right lower lobe infiltrate on imaging studies, most likely due to atelectasis. No evidence of pneumonia on CT scan. 6. Reactive erythrocytosis due to chronic hypoxemia. The patient will need to be on oxygen therapy. In general, I think Ms. Alvarado is doing fairly okay. She is currently on supplemental oxygen at 2 liters, and she is saturating well. We are going to get her evaluated for home oxygen again, and hopefully get her discharged tomorrow. She will need to follow up with her. She is going to need to follow up with her sleep team/Pulmonary Medicine (Dr. Sneed). We have also advised Ms. Alvarado about dietary restrictions with regards to her hiatal hernia, and also to follow up with Gastroenterology on outpatient. We will add proton pump inhibitor to her current treatment. cc: MD Kolton Griffin MD
[2020-03-05] MEDS: LOVENOX SUBQ SCH (16:06)
--- NOTE | 2020-03-05 16:46 | ECHO REPORT ---
ORDER DATE: 03/04/2020 MEASUREMENTS: Aortic root 3.1, left atrium 3.8. SUMMARY: 1. Limited 2-dimensional study performed. Acoustic window is technically difficult. 2. Aortic valve is without evidence of structural abnormality and appears to open adequately on 2- dimensional images. Doppler of aortic valve not performed. Mitral and tricuspid valves are without gross structural abnormality. Pulmonic valve is not well demonstrated. Aortic root is normal in size. 3. Normal left ventricular dimensions demonstrated. The estimated left ventricular ejection fraction appears to be at least 55%. No regional wall motion abnormality can be appreciated. Left atrium, right atrium, and right ventricle are grossly normal in size. 4. No pericardial effusion. 5. Appearance of inferior vena cava suggests elevated central venous pressure. CONCLUSIONS: 1. Limited 2-dimensional echo free study performed with difficult acoustic windows. 2. No obvious valvular abnormality evident. 3. Estimated left ventricular ejection fraction at least 55%. 4. Elevated central venous pressure suggested. cc: MD Kolton Virgen MD
[2020-03-05] MEDS: ROCEPHIN 1 GM in NS 50 ML IV SCH (18:29)
[2020-03-06] MEDS: PRILOSEC PO SCH ×2 (05:56→07:40)
[2020-03-06] MEDS: PEPCID PO SCH (09:59)
[2020-03-06] MEDS: ZITHROMAX PO SCH (09:59)
[2020-03-06 12:12] VITALS: BP 125/60
--- NOTE | 2020-03-07 04:48 | DISCHARGE SUMMARY ---
ADMISSION DATE: 03/04/2020 DISCHARGE DATE: 03/06/2020 DISPOSITION: Home. FOLLOW-UP: 1. Dr. Sykes. 2. Dr. Alejo. CONSULTATION DURING THIS ADMISSION: None. INVASIVE PROCEDURES DURING ADMISSION: None. IMAGING STUDIES OF SIGNIFICANCE: CT scan of the abdomen and pelvis with contrast showed no acute pathology by CT. A CT of the chest did show subsegmental atelectasis +/- fibrosis and hiatal hernia. ADMISSION DIAGNOSES: 1. Chronic hypoxemic and hypercarbic respiratory failure. 2. Pickwickian syndrome. 3. Obstructive sleep apnea. 4. Epigastric discomfort. 5. Dysphagia. DISCHARGE DIAGNOSES: 1. Acute on chronic hypoxemic and hypercarbic respiratory failure. 2. History of obstructive sleep apnea. Patient noncompliant with the use of her CPAP at home. 3. Obesity hypoventilation syndrome. 4. Epigastric discomfort, most likely due to hiatal hernia. 5. Right lower lobe infiltrate on imaging secondary to atelectasis. No evidence of pneumonia. 6. Reactive erythrocytosis due to chronic hypoxemia. DISCHARGE MEDICATIONS: 1. Omeprazole 40 mg p.o. daily. 2. Albuterol inhalers. 3. Azithromycin 250 p.o. daily. 4. Furosemide 20 mg p.o. daily. PRESENTING COMPLAINT: Epigastric discomfort, and longstanding shortness of breath. HISTORY OF PRESENTING COMPLAINT: Ms. Alvarado is a 54-year-old morbidly obese female with BMI of 49.9 presented initially to [facility] because of shortness of breath and some epigastric discomfort. She was evaluated and transferred to [facility] for higher level of care. HOSPITAL COURSE: Ms. Alvarado was admitted and was put on supplemental oxygen. Upon presentation, her O2 saturation was 86. ABG which was done showed pCO2 of 68, and PO2 of 57. During the hospital cause, she did improve significantly on her saturations. Doppler ultrasound of the lower extremities were done which was negative. Her COVID testing was also unremarkable. She was evaluated by respiratory therapy as well as physical therapy. As I said, her oxygen demands got much better. She was on 2 L on supplemental oxygen, and was saturating 96. She did qualify for home 2 oxygen since her saturation went down on ambulation. Ms. Alvarado was also found to have mild hiatal hernia. She has been advised on aspiration precautions and dietary changes. She is currently on omeprazole. Ms. Alvarado has been advised that she is going to be needing to wear her oxygen all the time, and that she also needs her CPAP at night. She will need to follow up with both the Sleep Team and building services engineer on an outpatient basis. All the discharge instructions have been discussed with Ms. Alvarado, and she voiced understanding. TIME SPENT: Time spent for discharge is 32 minutes. cc: MD Kolton Griffin MD
--- NOTE | 2020-03-07 12:50 | Extremity Venous Study ---
PROCEDURE NAME: Venous U/S Bilateral Legs - 03/05/2020 REQUESTING PROVIDER: Dr. Teague. EDITOR AT LARGE: Cydney. INDICATIONS: 1. Edema. 2. Shortness of breath. EQUIPMENT: [employer] Vivid E9 ultrasound system with a 9 L-D transducer. FINDINGS: Images of the bilateral lower extremity venous systems were obtained in both sagittal and transverse planes. Doppler was used to evaluate the veins for spontaneity, phasicity, respiratory excursion, and digital augmentation. RESULTS: Some reflux noted in the bilateral common femoral veins, but no obvious superficial or deep venous thrombosis noted. INTERPRETATION: Reflux noted to bilateral common femoral veins without superficial or deep venous thrombosis. The patient may benefit from a dedicated reflux study. cc: MD Vane Alcala CRNP Cesar Garcia-Rodriguez, MD
== END 2020-03-06 15:51 | disposition home or self-care (01) | DRG 189 ==
LOC: P.ED 10:07 → 4N 10:08 → SUATTDRO 10:08 → 4N 03-06 08:23
PROVIDERS: ADMIT Internal Medicine; ATTEND Internal Medicine